=== PATIENT | female | born 1965 | race Caucasian/White ===

== ENCOUNTER 2017-05-05 06:19 | Emergency (ER) | payer SELFPAY ==
[~2017-05-05] VITALS: Ht 180.3 cm; Wt 134.3 kg
[~2017-05-05 06:19] MED LIST: ALBU0.086 INH; ALBU0.086 NEB; ALBU1AER INH; PRED20 PO; ZITH250T PO
[2017-05-05] MEDS ORDERED: SODIUM CHLORIDE 0.9% FLUSH 10 ML FLUSH IVF PRN (06:30)
[2017-05-05] MEDS ORDERED: predniSONE 20 MG TAB PO ONE (06:30)
[2017-05-05 06:35] VITALS: BP 168/92; PULSE 79; RESP 18; TEMP 97.7; O2SAT 93
--- NOTE | 2017-05-05 06:35 | PD ---
HPI Chief Complaint: Respiratory Distress Time Seen by Provider: 06:22 Travel History International Travel<30 days: No Contact w/Intl Traveler<30days: No History of Present Illness HPI Patient 51-year-old female presents emergency Department with shortness of breath for the past week. Patient states he has a history of asthma. She states that she ran out of her inhalers approximately a week ago. States since that she's been having gradual onset shortness of breath. Endorses a dry cough no fever no abdominal pain no chest pain. States she's had to be admitted to the hospital before but never had to be intubated. She has had to be on BiPAP states she's no where near that bad today. PFSH Past Medical History Asthma: Yes Blood Disorders: No Cancer: No Cardiovascular Problems: No COPD: Yes Diminished Hearing: No Endocrine: No Gastrointestinal Disorders: No Genitourinary: No Immune Disorder: No Implanted Vascular Access Dvce: No Musculoskeletal: No Neurologic: No Psychiatric: No Reproductive: Yes (SEE SURGERY ABOVE) Respiratory: Yes (ASTHMA) Immunizations Current: No Sleep Apnea: No Menopausal: Yes Ectopic : Yes Past Surgical History Abdominal Surgery: No Cardiac Surgery: No Endocrine Surgery: No Eye Surgery: No Genitourinary Surgery: No Gynecologic Surgery: Yes (TUBULAR ) Oral Surgery: No Thoracic Surgery: No Other Surgery: Yes Social History Alcohol Use: Yes (OCC) Tobacco Use: Yes (1/2 PPD) Substance Use: No Allergies-Medications (Allergen,Severity, Reaction): Coded Allergies: No Known Allergies (Verified , 05/05/17) Reported Meds & Prescriptions Reported Meds & Active Scripts Active Albuterol Neb (Albuterol Sulfate) 2.5 Mg/3 Ml Neb 2.5 Mg NEB QID NEB Prednisone 20 Mg Tab 40 Mg PO DAILY Take 40 mg (2 tablets) daily for 5 days Ventolin Hfa 18 GM Inh (Albuterol Sulfate) 90 Mcg/Act Aer 2 Puff INH Q4H PRN Proventil Ud 0.083% (2.5 Mg/3 Ml) (Albuterol Sulfate) 2.5 Mg/3 Ml Inha 2.5 Mg INH Q4 Reported Proair Hfa (Albuterol Sulfate) 8.5 Gm Aero 1 Puff INH Q6H PRN * SHAKE WELL BEFORE USE * Review of Systems Except as stated in HPI: all other systems reviewed are Neg Physical Exam Narrative GENERAL: [Well-developed well-nourished, morbidly obese in no apparent distress. SKIN: Focused skin assessment warm/dry. HEAD: Atraumatic. Normocephalic. EYES: Pupils equal and round. No scleral icterus. No injection or drainage. ENT: No nasal bleeding or discharge. Mucous membranes pink and moist. NECK: Trachea midline. No JVD. CARDIOVASCULAR: Regular rate and rhythm. No murmur appreciated. RESPIRATORY: No accessory muscle use. No retractions. into turning story wheezing throughout all lung yañez.. Breath sounds equal bilaterally. GASTROINTESTINAL: Abdomen soft, non-tender, nondistended. Hepatic and splenic margins not palpable. MUSCULOSKELETAL: No obvious deformities. No clubbing. No cyanosis. No edema. NEUROLOGICAL: Awake and alert. No obvious cranial nerve deficits. Motor grossly within normal limits. Normal speech. PSYCHIATRIC: Appropriate mood and affect; insight and judgment normal. Data Data Last Documented VS Vital Signs Date Time Temp Pulse Resp B/P Pulse Ox O2 Delivery O2 Flow Rate FiO2 05/05/17 07:06 18 95 Room Air 05/05/17 06:57 74 134/90 05/05/17 06:38 21 05/05/17 06:35 97.7 Orders Ecg Monitoring (05/05/17 06:25) Iv Access Insert/Monitor (05/05/17 06:25) Oximetry (05/05/17 06:25) Oxygen Administration (05/05/17 06:25) Prednisone (Deltasone) (05/05/17 06:30) Albuterol-Ipratropium Neb (Duoneb Neb) (05/05/17 06:30) Sodium Chloride 0.9% Flush (Ns Flush) (05/05/17 06:30) MDM Medical Decision Making Medical Screen Exam Complete: Yes Emergency Medical Condition: Yes Differential Diagnosis Asthma exacerbation, pneumonia highly unlikely, URI, Narrative Course Patient was roomed in emergency department, DuoNeb 7 ordered as well as prednisone. Patient having treatments done at time of 0700 change shift, will be discussed with the oncoming provider to follow-up and reassess the patient and disposition appropriately. Diagnosis Primary Impression: Asthma exacerbation Scripts Albuterol Neb 2.5 Mg/3 Ml Neb2.5 Mg NEB QID NEB #60 NEBULE Ref 1 Prov:Vignesh Castañeda MD 05/05/17 Prednisone 20 Mg Tab40 Mg PO DAILY #10 TAB Ref 0 Take 40 mg (2 tablets) daily for 5 days Prov:Vignesh Castañeda MD 05/05/17 Albuterol 18 GM Inh (Ventolin Hfa 18 GM Inh)90 Mcg/Act Aer2 Puff INH Q4H PRN ( SHORTNESS OF BREATH) #1 INHALER Ref 0 Prov:Vignesh Castañeda MD 05/05/17 Liborio Mcmanus MD May 05, 2017 06:35
[2017-05-05 06:38] VITALS: O2SAT 95
[2017-05-05] MEDS: RESP: ALBUTEROL 2.5 MG/IPRATROPIUM 0.5 MG NEB (SCH) INH ×3 (06:38→06:53)
[2017-05-05 06:44] VITALS: RESP 18; O2SAT 93
[2017-05-05 06:57] VITALS: BP 134/90; PULSE 74; RESP 20; O2SAT 96
[2017-05-05] MEDS ORDERED: ALBU0.08 NEB (07:31)
[2017-05-05] MEDS ORDERED: VENTAER INH (07:31)
[2017-05-05] MEDS ORDERED: PRED20 PO (07:31)
--- NOTE | 2017-05-05 07:32 | PD ---
Data Data Last Documented VS Vital Signs Date Time Temp Pulse Resp B/P Pulse Ox O2 Delivery O2 Flow Rate FiO2 05/05/17 07:06 18 95 Room Air 05/05/17 06:57 74 134/90 05/05/17 06:38 21 05/05/17 06:35 97.7 Orders Ecg Monitoring (05/05/17 06:25) Iv Access Insert/Monitor (05/05/17 06:25) Oximetry (05/05/17 06:25) Oxygen Administration (05/05/17 06:25) Prednisone (Deltasone) (05/05/17 06:30) Albuterol-Ipratropium Neb (Duoneb Neb) (05/05/17 06:30) Sodium Chloride 0.9% Flush (Ns Flush) (05/05/17 06:30) MDM Supervised Visit with WILLY: No Narrative Course This case is checked out to me by Dr. Mcmanus at 7 AM. Patient completed her nebulizers. She says that she feels improved. She has minimal expiratory wheeze with room air saturation of 97% I wrote her 5 days of prednisone as well as a refill of her albuterol inhaler and albuterol nebulizer liquid. We discussed smoking cessation. Unfortunately she is smoking at this time. The patient was advised to follow up with their physician and return if they worsen. Diagnosis Primary Impression: Asthma exacerbation Additional Impression: Tobacco abuse disorder Additional Instruction: The patient was advised to follow up with their physician and return if they worsen. Stop smoking Med/Other Pt SpecificInfo: Prescription(s) given Scripts Albuterol Neb 2.5 Mg/3 Ml Neb2.5 Mg NEB QID NEB #60 NEBULE Ref 1 Prov:Vignesh Castañeda MD 05/05/17 Prednisone 20 Mg Tab40 Mg PO DAILY #10 TAB Ref 0 Take 40 mg (2 tablets) daily for 5 days Prov:Vignesh Castañeda MD 05/05/17 Albuterol 18 GM Inh (Ventolin Hfa 18 GM Inh)90 Mcg/Act Aer2 Puff INH Q4H PRN ( SHORTNESS OF BREATH) #1 INHALER Ref 0 Prov:Vignesh Castañeda MD 05/05/17 Disposition: 01 DISCHARGE HOME Condition: Stable Vignesh Castañeda MD May 05, 2017 07:32
== END 2017-05-05 07:41 | disposition home or self-care (01) ==
LOC: PHED 06:19
DX: J45.901 Unspecified asthma with (acute) exacerbation (principal); F17.210 Nicotine dependence, cigarettes, uncomplicated; J44.9 Chronic obstructive pulmonary disease, unspecified
CPT/HCPCS: 94640; 94664; 99284; J7512

== ENCOUNTER 2017-06-13 18:03 | Emergency (ER) | payer SELFPAY ==
[~2017-06-13] VITALS: Ht 180.3 cm; Wt 134.0 kg
[~2017-06-13 18:03] MED LIST changes: +ALBU0.08 NEB; -ALBU0.086 NEB; +VENTAER INH; -ZITH250T PO
[2017-06-13 18:17] VITALS: BP 213/106; PULSE 111; RESP 20; TEMP 99.5; O2SAT 92
[2017-06-13 18:20] VITALS: O2SAT 93
--- NOTE | 2017-06-13 18:20 | PD ---
HPI Chief Complaint: Respiratory Distress Time Seen by Provider: 18:14 Travel History International Travel<30 days: No Contact w/Intl Traveler<30days: No Traveled to known affect area: No History of Present Illness HPI 51-year-old female with history of asthma here for evaluation of wheezing and shortness of breath. Symptoms started yesterday and has been progressively getting worse. Her albuterol treatments at home have not been helping. She is having some chest tightness as well as cough productive of greenish sputum. No known history of CAD. No history of DVT or PE. No hemoptysis. She is a smoker. PFSH Past Medical History Asthma: Yes Blood Disorders: No Cancer: No Cardiovascular Problems: No COPD: Yes Diminished Hearing: No Endocrine: No Gastrointestinal Disorders: No Genitourinary: No Immune Disorder: No Implanted Vascular Access Dvce: No Musculoskeletal: No Neurologic: No Psychiatric: No Reproductive: Yes (SEE SURGERY ABOVE) Respiratory: Yes (ASTHMA) Immunizations Current: No Sleep Apnea: No Menopausal: Yes Ectopic : Yes Past Surgical History Abdominal Surgery: No Cardiac Surgery: No Endocrine Surgery: No Eye Surgery: No Genitourinary Surgery: No Gynecologic Surgery: Yes (TUBULAR ) Neurologic Surgery: No Oral Surgery: No Thoracic Surgery: No Other Surgery: Yes Social History Alcohol Use: Yes (OCC) Tobacco Use: Yes (1/2 PPD) Substance Use: No Allergies-Medications (Allergen,Severity, Reaction): Coded Allergies: No Known Allergies (Verified , 06/13/17) Reported Meds & Prescriptions Reported Meds & Active Scripts Active Albuterol Neb (Albuterol Sulfate) 2.5 Mg/3 Ml Neb 2.5 Mg NEB QID NEB Ventolin Hfa 18 GM Inh (Albuterol Sulfate) 90 Mcg/Act Aer 2 Puff INH Q4H PRN Review of Systems Except as stated in HPI: all other systems reviewed are Neg Physical Exam Narrative GENERAL: Well-developed, well-nourished, moderate respiratory distress, speaking a few words at a time. SKIN: Focused skin assessment warm/dry. HEAD: Atraumatic. Normocephalic. EYES: Pupils equal and round. No scleral icterus. No injection or drainage. ENT: Mucous membranes pink and moist. NECK: Trachea midline. No JVD. CARDIOVASCULAR: Regular rate and rhythm. RESPIRATORY: Moderate respiratory distress, speaking a few words at a time, inspiratory and expiratory wheezes bilaterally. GASTROINTESTINAL: Abdomen soft, non-tender, nondistended. MUSCULOSKELETAL: No obvious deformities. No clubbing. No cyanosis. No edema. NEUROLOGICAL: Awake and alert. No obvious cranial nerve deficits. Motor grossly within normal limits. Normal speech. PSYCHIATRIC: Appropriate mood and affect; insight and judgment normal. Data Data Last Documented VS Vital Signs Date Time Temp Pulse Resp B/P Pulse Ox O2 Delivery O2 Flow Rate FiO2 06/13/17 19:00 113 16 168/92 Room Air 96 06/13/17 18:20 92 06/13/17 18:17 99.5 Orders Oximetry (06/13/17 18:16) Oxygen Administration (06/13/17 18:16) Sodium Chloride 0.9% Flush (Ns Flush) (06/13/17 18:30) Albuterol-Ipratropium Neb (Duoneb Neb) (06/13/17 18:30) Prednisone (Deltasone) (06/13/17 18:30) Chest, Single Ap (06/13/17 ) Albuterol Neb (Albuterol Neb) (06/13/17 20:00) MDM Medical Decision Making Medical Screen Exam Complete: Yes Emergency Medical Condition: Yes Medical Record Reviewed: Yes Differential Diagnosis Asthma exacerbation, pneumonia, pneumothorax, PE Narrative Course Vital signs reviewed. Chest x-ray: No evidence of acute cardio pulmonary disease. Patient was given 3 DuoNeb treatments and oral prednisone. On reassessment she still had slight wheezing, however she felt significantly improved. She was given 1 more albuterol nebulizer treatment, and on reassessment she was sleeping comfortably. She states she feels significantly improved and would like to go home. I believe she is likely suffering from bronchitis given her yellow/greenish sputum. I will start her on a Z-Yrn as well as give her a 5 day course of prednisone. She will be given information to follow-up with the [facility]. She was informed on when to return to the emergency department. She verbalizes understanding and agreement with plan. Diagnosis Primary Impression: Asthma exacerbation Referrals: [facility] 3 days Additional Instructions: Follow-up with a primary care physician this week. Return to the emergency department for worsening symptoms or any other concerns. Scripts Azithromycin (Zithromax Z-Yrn)250 Mg Acon015 Mg PO DIRECTED #1 DSPK Ref 0 500 MG (2 tabs) day 1, then 1 tab days 2-5. Prov:Nic Chapman MD 06/13/17 Albuterol Neb 0.63 Mg/3 Ml Neb0.63 Mg NEB Q6HR NEB PRN (SHORTNESS OF BREATH) # 25 NEBULE Ref 0 Prov:Nic Chapman MD 06/13/17 Prednisone 50 Mg Tab50 Mg PO DAILY 5 Days Ref 0 Prov:Nic Chapman MD 06/13/17 Disposition: 01 DISCHARGE HOME Condition: Stable Nic Chapman MD Jun 13, 2017 18:20
[2017-06-13] MEDS: RESP: ALBUTEROL 2.5 MG/IPRATROPIUM 0.5 MG NEB (SCH) INH (18:27)
[2017-06-13] MEDS ORDERED: SODIUM CHLORIDE 0.9% FLUSH 10 ML FLUSH IVF PRN (18:30)
[2017-06-13] MEDS ORDERED: predniSONE 50 MG TAB PO ONE (18:30)
--- NOTE | 2017-06-13 18:55 | RADRPT ---
EXAM DATE/TIME: 06/13/2017 18:36 [place] COMPARISON: CHEST SINGLE AP, August 22, 2016, 18:25. INDICATIONS : Short of breath. MEDICAL HISTORY : Asthma. SURGICAL HISTORY : None. ENCOUNTER: Initial ACUITY: 1 day PAIN SCORE: 0/10 LOCATION: Bilateral chest FINDINGS: A single view of the chest demonstrates the lungs to be symmetrically aerated without evidence of mas s, infiltrate or effusion. The cardiomediastinal contours are unremarkable. Osseous structures are intact. CONCLUSION: No evidence of acute cardiopulmonary disease. Robert Edward MD on June 13, 2017 at 18:54 Board Certified Radiologist. This report was verified electronically.
[2017-06-13 19:00] VITALS: BP 168/92; PULSE 113; RESP 16
[2017-06-13] MEDS ORDERED: RESP: ALBUTEROL 2.5 MG/3 ML NEB (SCH) INH ONE (20:00)
[2017-06-13] MEDS ORDERED: PRED50 PO (20:28)
[2017-06-13] MEDS ORDERED: ALBU0.63 NEB (20:28)
[2017-06-13] MEDS ORDERED: ZITHTAB PO (20:28)
[2017-06-13 20:55] VITALS: BP 136/94
== END 2017-06-13 20:56 | disposition home or self-care (01) ==
LOC: PHED 18:03
DX: J45.901 Unspecified asthma with (acute) exacerbation (principal); F17.210 Nicotine dependence, cigarettes, uncomplicated
CPT/HCPCS: 71010; 94640; 94664; 99284; J7512; J7613